=== PATIENT | male | born 1965 | race Caucasian/White ===

== ENCOUNTER 2020-08-30 11:01 | Observation (INO) ==
[2020-08-30 12:28] LABS: Basophils % 0.5 %; Eosinophils # 0.1 K/mcL (0.0-0.6); Eosinophils % 1.7 %; Hemoglobin 9.7 g/dL (12.9-16.9); Immature Granulocytes % 0.5 % (0-4); Lymphocytes # 1.4 K/mcL (0.6-4.6); Lymphocytes % 17.2 %; Mean Corpuscular HGB Conc 29.4 g/dL (31.6-35.5); Mean Corpuscular Hemoglobin 23.5 pg (28.0-33.3); Mean Corpuscular Volume 80.1 fL (83.0-100.0); Monocytes # 0.6 K/mcL (0.0-1.3); Monocytes % 7.4 %; Platelet Count 205 K/mcL (140-400); Red Blood Count 4.12 M/mcL (4.19-5.50); Red Cell Distribution Width 15.2 % (11.5-14.5); Segmented Neutrophils % 72.7 %; White Blood Count 8.3 K/mcL (4.3-11.1)
[2020-08-30 12:48] LABS: BUN/Creatinine Ratio 15 (6-26); Blood Urea Nitrogen 16 mg/dL (6-20); Calcium 7.9 mg/dL (8.6-10.3); Carbon Dioxide 27 mEq/L (23-29); Chloride 104 mEq/L (98-107); Glucose 238 mg/dL (70-105); Osmolality,Calculated 289 (280-300); Potassium 3.8 mEq/L (3.5-5.1); Sodium 135 mEq/L (136-145); Troponin I < 0.03 ng/mL (< 0.04); eGFR For African Americans > 60 (> 60); eGFR For Non-African Americans > 60 (> 60)
[2020-08-30] MEDS ORDERED: Nitroglycerin 0.4 MG TAB.SUBL SL STA (13:30)
[2020-08-30] MEDS ORDERED: Aspirin 325 MG TABLET PO ONE (13:30)
[2020-08-30] MEDS ORDERED: Furosemide 40 MG/4 ML VIAL IVP ONE (13:30)
[2020-08-30] MEDS ORDERED: Ondansetron ODT 4 MG TAB.RAPDIS SL PRN (13:59)
[2020-08-30] MEDS ORDERED: Naloxone 0.4 MG/ML INJ IVP PRN (13:59)
[2020-08-30] MEDS ORDERED: Melatonin 3 MG TABLET PO PRN (13:59)
[2020-08-30] MEDS ORDERED: Perflutren Lipid Microsphere 1.3 ML in 0.9 % Sodium Chloride 8.7 ML IVP PRN (14:03)
[2020-08-30] MEDS ORDERED: amLODIPine 5 MG TABLET PO SCH (14:15)
[2020-08-30 16:32] LABS: Estimated Average Glucose 226 mg/dl; Hemoglobin A1C 9.5 %
[2020-08-31 08:29] LABS: Basophils % 0.4 %; Eosinophils # 0.1 K/mcL (0.0-0.6); Eosinophils % 1.5 %; Hematocrit 31.5 % (37.5-50.1); Hemoglobin 9.7 g/dL (12.9-16.9); Immature Granulocytes % 0.4 % (0-4); Lymphocytes % 14.3 %; Mean Corpuscular HGB Conc 30.8 g/dL (31.6-35.5); Mean Corpuscular Hemoglobin 24.4 pg (28.0-33.3); Mean Corpuscular Volume 79.1 fL (83.0-100.0); Mean Platelet Volume 10.5 fL (9.4-12.4); Monocytes # 0.4 K/mcL (0.0-1.3); Monocytes % 6.5 %; Neutrophils # 5.2 K/mcL (1.6-8.9); Platelet Count 189 K/mcL (140-400); Red Blood Count 3.98 M/mcL (4.19-5.50); Red Cell Distribution Width 15.4 % (11.5-14.5); Segmented Neutrophils % 76.9 %; White Blood Count 6.8 K/mcL (4.3-11.1)
[2020-08-31] MEDS ORDERED: lisinopriL 10 MG TABLET PO SCH (09:00)
[2020-08-31 09:29] LABS: BUN/Creatinine Ratio 17 (6-26); Blood Urea Nitrogen 18 mg/dL (6-20); Calcium 7.9 mg/dL (8.6-10.3); Carbon Dioxide 26 mEq/L (23-29); Chloride 104 mEq/L (98-107); Glucose 178 mg/dL (70-105); Osmolality,Calculated 286 (280-300); Potassium 3.8 mEq/L (3.5-5.1); Sodium 135 mEq/L (136-145); eGFR For African Americans > 60 (> 60); eGFR For Non-African Americans > 60 (> 60)
[2020-08-31] MEDS: amLODIPine 5 MG TABLET PO SCH (10:37)
[2020-08-31] MEDS: Furosemide 40 MG/4 ML VIAL IVP SCH (10:37)
[2020-08-31] MEDS ORDERED: D5% in Water 1,000 ML IVC PRN (13:29)
[2020-08-31] MEDS ORDERED: *HR* Dextrose 50 % in Water (Vial) 50 ML VIAL IVP PRN (13:29)
[2020-08-31] MEDS ORDERED: Dextrose Gel 15 GM/37.5 ML TUBE PO PRN ×2 (13:29)
[2020-08-31] MEDS: Insulin LISPRO 300 UNITS/3 ML VIAL SUBQ SCH (17:01)
[2020-08-31] MEDS ORDERED: lisinopriL 20 MG TABLET PO STA (17:20)
[2020-08-31] MEDS ORDERED: *HR* Heparin 5,000 UNIT/ML VIAL SQ SCH (18:00)
[2020-08-31] MEDS ORDERED: hydrALAZINE 25 MG TABLET PO ONE (19:24)
[2020-08-31] MEDS ORDERED: Insulin DETEMIR 100 UNIT/ML X5UNITS SUBQ SCH (21:00)
[2020-08-31] MEDS: *HR* Heparin 5,000 UNIT/ML VIAL SQ SCH (22:41)
[2020-09-01 01:28] LABS: BUN/Creatinine Ratio 19 (6-26); Blood Urea Nitrogen 23 mg/dL (6-20); Calcium 7.9 mg/dL (8.6-10.3); Carbon Dioxide 25 mEq/L (23-29); Chloride 105 mEq/L (98-107); Chol/HDL Ratio 7.3 (0-4.9); Cholesterol 174 mg/dL (< 200); Glucose 121 mg/dL (70-105); HDL Cholesterol 24 mg/dL (40-59); LDL Cholesterol,Calculated 132 mg/dL (< 100); Magnesium 1.5 mg/dL (1.6-2.6); Osmolality,Calculated 289 (280-300); Phosphorous 4.9 mg/dL (2.7-4.5); Potassium 3.5 mEq/L (3.5-5.1); Sodium 137 mEq/L (136-145); Triglycerides 88 mg/dL (< 150); eGFR For African Americans > 60 (> 60); eGFR For Non-African Americans > 60 (> 60)
[2020-09-01] MEDS: *HR* Heparin 5,000 UNIT/ML VIAL SQ SCH (05:30)
[2020-09-01] MEDS: Insulin LISPRO 300 UNITS/3 ML VIAL SUBQ SCH ×2 (08:08→12:17)
[2020-09-01] MEDS: Furosemide 40 MG/4 ML VIAL IVP SCH (08:10)
[2020-09-01] MEDS: Calcium Gluconate 1gm/50mL 1 GM/50 ML BAG IVPB SCH ×2 (08:11→09:29)
[2020-09-01] MEDS: amLODIPine 5 MG TABLET PO SCH (08:12)
[2020-09-01] MEDS ORDERED: lisinopriL 20 MG TABLET PO SCH (09:00)
[2020-09-01 12:21] VITALS: BP 132/87
== END 2020-09-01 16:07 | disposition home or self-care (01) ==
LOC: 2NENU 11:01 → EMEROOARM 11:01 → SUATTDRO 14:04 → 2NENU 14:36
PROVIDERS: ADMIT Internal Medicine; ATTEND Internal Medicine

== ENCOUNTER 2022-01-08 14:45 | Inpatient (IN) ==
[2022-01-08] MEDS ORDERED: Ondansetron ODT 4 MG TAB.RAPDIS SL PRN (18:07)
[2022-01-08] MEDS ORDERED: Naloxone 0.4 MG/ML INJ IVP PRN (18:07)
[2022-01-08] MEDS ORDERED: Acetaminophen 325 MG TABLET PO PRN (18:18)
[2022-01-08] MEDS ORDERED: Melatonin 3 MG TABLET PO PRN (18:18)
[2022-01-08 18:49] LABS: Red Cell Distribution Width 21.2 % (11.5-14.5); Segmented Neutrophils % 74.1 %
[2022-01-08 18:50] LABS: Basophils # 0.1 K/mcL (0.0-0.2); Basophils % 0.7 %; Eosinophils # 0.1 K/mcL (0.0-0.6); Eosinophils % 1.5 %; Hematocrit 26.9 % (37.5-50.1); Immature Granulocytes % 0.4 % (0-4); Lymphocytes # 0.9 K/mcL (0.6-4.6); Lymphocytes % 11.7 %; Mean Corpuscular Hemoglobin 17.4 pg (28.0-33.3); Mean Corpuscular Volume 66.7 fL (83.0-100.0); Mean Platelet Volume 9.6 fL (9.4-12.4); Monocytes # 0.9 K/mcL (0.0-1.3); Monocytes % 11.6 %; Neutrophils # 5.5 K/mcL (1.6-8.9); Platelet Count 291 K/mcL (140-400); Red Blood Count 4.03 M/mcL (4.19-5.50); White Blood Count 7.4 K/mcL (4.3-11.1)
[2022-01-08] MEDS ORDERED: *HR* Dextrose 50 % in Water (Syg) 50 ML SYRINGE IVP PRN (19:00)
[2022-01-08] MEDS ORDERED: 0.9 % Sodium Chloride 250 ML IVC SCH (19:00)
[2022-01-08] MEDS ORDERED: D5% in Water 1,000 ML IVC PRN (19:00)
[2022-01-08] MEDS ORDERED: Dextrose Gel 15 GM/37.5 ML TUBE PO PRN ×2 (19:00)
[2022-01-08 19:09] LABS: Alanine Aminotransferase 11 Units/L (7-52); Albumin 3.5 g/dL (3.5-5.7); Alkaline Phosphatase 69 Units/L (34-104); Aspartate Amino Transferase 11 Units/L (13-39); Bilirubin,Direct 0.1 mg/dL (0.0-0.2); Bilirubin,Indirect 0.4 mg/dL (0.0-1.0); Bilirubin,Total 0.5 mg/dL (0.3-1.0); Globulin 3.5 g/dL (2.4-3.5)
[2022-01-08 19:48] LABS: Hypochromasia Present (Not Present); Microcytosis Present (Not Present); Ovalocytes 1+ (Not Present); Platelet Estimate Normal (Normal)
[2022-01-08] MEDS ORDERED: Albumin 25% 25gram/100mL 25 GM/100 ML IV.SOLN IVPB ONE (19:56)
[2022-01-08] MEDS ORDERED: Furosemide 20 MG/2 ML VIAL IVP ONE (19:56)
[2022-01-08 20:17] LABS: Troponin I < 0.03 ng/mL (< 0.04)
[2022-01-08 20:46] LABS: Estimated Average Glucose 143 mg/dl; Hemoglobin A1C 6.6 %
[2022-01-08] MEDS: niCARdipine 20 MG/200 ML MLS IVC SCH (23:42)
[2022-01-08] MEDS: Insulin LISPRO 300 UNITS/3 ML VIAL SUBQ SCH (23:42)
[2022-01-08] MEDS: carvediloL 6.25 MG TABLET PO SCH (23:45)
[2022-01-09] MEDS: Pantoprazole 40 MG VIAL IVP SCH ×2 (05:45→17:51)
[2022-01-09] MEDS: niCARdipine 20 MG/200 ML MLS IVC SCH ×4 (07:27→12:56)
[2022-01-09 08:29] LABS: Immature Reticulocyte % 37.7 % (11.0-38.0); Mean Corpuscular Hemoglobin 18.4 pg (28.0-33.3); Nucleated Red Blood Cells 0.3 /100 WBC (0); Retculocyte # 0.04 M/mcL (0.05-0.10)
[2022-01-09 08:31] LABS: Basophils # 0.1 K/mcL (0.0-0.2); Basophils % 0.9 %; Eosinophils # 0.1 K/mcL (0.0-0.6); Eosinophils % 2.2 %; Hematocrit 27.2 % (37.5-50.1); Hemoglobin 7.3 g/dL (12.9-16.9); Immature Granulocytes % 0.7 % (0-4); Mean Corpuscular HGB Conc 26.8 g/dL (31.6-35.5); Mean Corpuscular Volume 68.5 fL (83.0-100.0); Mean Platelet Volume 9.5 fL (9.4-12.4); Monocytes # 0.8 K/mcL (0.0-1.3); Monocytes % 13.8 %; Neutrophils # 3.9 K/mcL (1.6-8.9); Platelet Count 272 K/mcL (140-400); Red Blood Count 3.97 M/mcL (4.19-5.50); Red Cell Distribution Width 22.8 % (11.5-14.5); Segmented Neutrophils % 65.4 %; White Blood Count 5.9 K/mcL (4.3-11.1)
[2022-01-09 08:38] LABS: INR 1.2; Prothrombin Time 13.8 Seconds (9.4-12.1)
[2022-01-09 08:41] LABS: Activated Partial Thrombo Time 31.7 Seconds (26.0-36.0)
[2022-01-09 08:47] LABS: Calcium 8.6 mg/dL (8.6-10.3); Phosphorous 4.4 mg/dL (2.7-4.5); Potassium 4.3 mEq/L (3.5-5.1)
[2022-01-09 08:48] LABS: % Iron Saturation 5 % (20-55); Iron 23 mcg/dL (65-175); Lactate Dehydrogenase 144 Units/L (140-271); Transferrin 318 mg/dL (203-362)
[2022-01-09 09:15] LABS: Anisocytosis 2+ (Not Present); Hypochromasia Present (Not Present); Platelet Estimate Normal (Normal)
[2022-01-09 09:16] LABS: Microcytosis Present (Not Present)
[2022-01-09 09:23] LABS: Ferritin < 8 ng/mL (20-250)
[2022-01-09] MEDS: Insulin LISPRO 300 UNITS/3 ML VIAL SUBQ SCH ×4 (10:04→22:48)
[2022-01-09] MEDS: lisinopriL 20 MG TABLET PO SCH (10:04)
[2022-01-09] MEDS: carvediloL 6.25 MG TABLET PO SCH ×2 (10:04→17:51)
[2022-01-09] MEDS ORDERED: 0.9 % Sodium Chloride 250 ML IVC SCH (11:00)
[2022-01-09] MEDS ORDERED: SODIUM CHLORIDE/NAHCO3/KCL/PEG 4,000 ML SOLN.RECON PO ONE (17:00)
[2022-01-09] MEDS: amLODIPine 5 MG TABLET PO SCH (22:48)
[2022-01-10] MEDS: Pantoprazole 40 MG VIAL IVP SCH ×2 (04:43→16:19)
[2022-01-10 05:01] LABS: Hemoglobin 7.9 g/dL (12.9-16.9); Mean Corpuscular HGB Conc 27.2 g/dL (31.6-35.5); Mean Corpuscular Hemoglobin 18.9 pg (28.0-33.3); Mean Corpuscular Volume 69.4 fL (83.0-100.0); Mean Platelet Volume 10.1 fL (9.4-12.4); Platelet Count 281 K/mcL (140-400); Red Blood Count 4.18 M/mcL (4.19-5.50); Red Cell Distribution Width 23.6 % (11.5-14.5); White Blood Count 7.4 K/mcL (4.3-11.1)
[2022-01-10 05:07] LABS: INR 1.3; Prothrombin Time 14.3 Seconds (9.4-12.1)
[2022-01-10 05:20] LABS: Calcium 8.4 mg/dL (8.6-10.3); Potassium 4.4 mEq/L (3.5-5.1)
[2022-01-10 06:36] LABS: Adenovirus Not Detected (Not Detect); Bordetella Pertussis Not Detected (Not Detect); Chlamydophila pneumoniae Not Detected (Not Detect); Coronavirus 229E Not Detected (Not Detect); Coronavirus HKU1 Not Detected (Not Detect); Coronavirus NL63 Not Detected (Not Detect); Coronavirus OC43 Not Detected (Not Detect); Human Metapneumovirus Not Detected (Not Detect); Human Rhinovirus/Enterovirus Not Detected (Not Detect); Influenza A Subtype 2009 H1 Not Detected (Not Detect); Influenza B Not Detected (Not Detect); Mycoplasma pneumoniae Not Detected (Not Detect); Parainfluenza Virus 1 Not Detected (Not Detect); Parainfluenza Virus 2 Not Detected (Not Detect); Parainfluenza Virus 3 Not Detected (Not Detect); Parainfluenza Virus 4 Not Detected (Not Detect); Respiratory Syncytial Virus Not Detected (Not Detect); SARS-CoV-2 Not Detected (Not Detect)
[2022-01-10] MEDS: carvediloL 6.25 MG TABLET PO SCH ×2 (07:55→16:20)
[2022-01-10] MEDS: Insulin LISPRO 300 UNITS/3 ML VIAL SUBQ SCH ×4 (07:55→19:56)
[2022-01-10] MEDS: lisinopriL 20 MG TABLET PO SCH (07:55)
[2022-01-10] MEDS: amLODIPine 5 MG TABLET PO SCH (07:55)
[2022-01-10] MEDS ORDERED: *HR* LORazepam 2 MG/ML VIAL IVP ONE (08:51)
[2022-01-10] MEDS ORDERED: *HR* Labetalol 20 MG/4 ML SYRINGE IVP ONE (08:53)
[2022-01-10] MEDS ORDERED: amLODIPine 5 MG TABLET PO SCH (09:00)
[2022-01-10] MEDS ORDERED: Simethicone 40 MG/0.6 ML MLS ONE (10:40)
[2022-01-10] MEDS ORDERED: Simethicone 40 MG/0.6 ML MLS IR ONE (10:50)
[2022-01-10] MEDS ORDERED: Lidocaine -MPF 2% 2 ML VIAL ONE (10:51)
[2022-01-11 03:36] LABS: Red Cell Distribution Width 23.6 % (11.5-14.5)
[2022-01-11 03:38] LABS: Hematocrit 28.3 % (37.5-50.1); Hemoglobin 7.7 g/dL (12.9-16.9); Mean Corpuscular HGB Conc 27.2 g/dL (31.6-35.5); Mean Corpuscular Hemoglobin 19.1 pg (28.0-33.3); Mean Platelet Volume 9.6 fL (9.4-12.4); Platelet Count 250 K/mcL (140-400); Red Blood Count 4.04 M/mcL (4.19-5.50)
[2022-01-11 03:57] LABS: Calcium 8.2 mg/dL (8.6-10.3); Potassium 4.3 mEq/L (3.5-5.1)
[2022-01-11] MEDS: Pantoprazole 40 MG VIAL IVP SCH (05:16)
[2022-01-11] MEDS: lisinopriL 20 MG TABLET PO SCH (09:29)
[2022-01-11] MEDS: amLODIPine 5 MG TABLET PO SCH (09:29)
[2022-01-11] MEDS: carvediloL 6.25 MG TABLET PO SCH (09:29)
[2022-01-11] MEDS: Insulin LISPRO 300 UNITS/3 ML VIAL SUBQ SCH ×2 (09:30→13:36)
[2022-01-11 09:35] VITALS: BP 167/88; PULSE 75; TEMP 98.4; O2SAT 96
== END 2022-01-11 13:43 | disposition home or self-care (01) | DRG 469 ==
LOC: 2NENU
PROVIDERS: ADMIT Hospitalist; ATTEND Hospitalist
PROC: ENDOEBX (2022-01-10 08:00)